=== PATIENT | male | born 1990 | race Hispanic/Latino ===

== ENCOUNTER 2016-04-13 12:20 | Inpatient (IN) | payer OTHER ==
[~2016-04-13] VITALS: Ht 170.2 cm; Wt 66.8 kg
[~2016-04-13 12:20] MED LIST: IBUPOTC PO; OLAN5ZYD PO; TRAZ10TA PO
[2016-04-13 12:54] LABS: MEAN CORPUSCULAR HEMOGLOBIN 30.3 pg (27.0-33.0); MEAN CORPUSCULAR HGB CONC 32.8 g/dl (32.0-36.5); MEAN CORPUSCULAR VOLUME 92.4 fl (80.0-96.0); RED CELL DISTRIBUTION WIDTH 12.5 % (11.5-14.5); WHITE BLOOD COUNT 6.8 K/mm3 (4.0-10.0)
[2016-04-13 13:29] LABS: ALBUMIN 4.4 GM/DL (3.2-5.2); ALBUMIN/GLOBULIN RATIO 1.22 (1.00-1.93); ALKALINE PHOSPHATASE 53 U/L (45-117); ALT/SGPT 32 U/L (12-78); ANION GAP 8 MEQ/L (8-16); AST/SGOT 17 U/L (15-37); BILIRUBIN,DIRECT 0.2 MG/DL (0.0-0.2); BILIRUBIN,TOTAL 1.1 MG/DL (0.2-1.0); BLOOD UREA NITROGEN 17 MG/DL (7-18); CALCIUM LEVEL 9.3 MG/DL (8.5-10.1); CARBON DIOXIDE LEVEL 26 MEQ/L (21-32); CHLORIDE LEVEL 105 MEQ/L (98-107); CREATININE FOR GFR 1.15 MG/DL (0.70-1.30); GLOMERULAR FILTRATION RATE > 60.0 (>60); GLUCOSE, FASTING 86 MG/DL (70-105); POTASSIUM SERUM 4.2 MEQ/L (3.5-5.1); SODIUM LEVEL 139 MEQ/L (136-145)
[2016-04-13 13:33] LABS: LITHIUM LEVEL < 0.20 MEQ/L (0.60-1.20)
[2016-04-13 15:26] LABS: AMPHETAMINES LEVEL URINE NEGATIVE (NEGATIVE); BENZODIAZEPINES URINE NEGATIVE (NEGATIVE); COCAINE METABOLITE URINE NEGATIVE (NEGATIVE); CONTROL LINE INT CTR LINE PRESENT; METHADONE URINE NEGATIVE (NEGATIVE); OPIATES URINE NEGATIVE (NEGATIVE); TRICYCLIC ANTIDEPRESS URINE NEGATIVE (NEGATIVE)
[2016-04-13] MEDS ORDERED: PARO40TA PO (15:59)
[2016-04-13] MEDS ORDERED: LITH30TASA PO ×2 (15:59)
[2016-04-13] MEDS ORDERED: QUET1TAB8 PO (15:59)
[2016-04-13] MEDS ORDERED: PRAZ5CAP PO (15:59)
[2016-04-13] MEDS ORDERED: QUET20XRTB PO (15:59)
--- NOTE | 2016-04-13 17:50 | EDDOCDS ---
Physician Documentation [facility] Name: Alex Kay Age: 26 yrs Sex: Male : 1990 Arrival Date: 04/13/2016 Time: 12:20 Bed [facility] Private MD: Disposition: 04/13/16 15:41 Hospitalization ordered by Ronaldo Carvajal for Inpatient Admission. Preliminary diagnosis is Major depressive disorder, recurrent, unspecified. - Bed requested for Admit. - Status is Inpatient Admission. mk4 - Condition is Stable. - Problem is new. - Symptoms are unchanged. Historical: - Allergies: Amoxicillin; - Home Meds: 1. lithium carbonate 300 mg Oral cap twice a day 2. paroxetine HCl 40 mg Oral tab 1 tab once daily 3. quetiapine 300 mg oral tab nightly 4. prazosin 5 mg Oral cap 2 caps nightly 5. pt was only given 7 days worth of meds on 03/29 - PSHx: none; - Social history: No barriers to communication noted, The patient speaks fluent Hungarian, Smoking status: Patient states was never smoker of tobacco. - Family history: Not pertinent. - : The pt / caregiver states he / she is not on anticoagulants. Home medication list is obtained from the patient. - Exposure Risk Screening:: None identified. Vital Signs: 04/13 12:35 BP 113 / 74; Pulse 80; Resp 18; Temp 97.4(T); Pulse Ox 98% on R/A; Weight 63.5 kg / mk4 139.99 lbs; Height 5 ft. 7 in. (170.18 cm); 17:43 BP 111 / 69; Pulse 74; Resp 20; Temp 97.6(O); Pulse Ox 98% on R/A; Pain 6/10; jml1 12:35 Body Mass Index 21.93 (63.50 kg, 170.18 cm) mk4 MDM: 12:23 Consult PFS/PSA/Community Fundraiser ordered. sd1 12:23 Consult PFS/PSA/Community Fundraiser: Patient's case requires discussion with on-call sd1 Psychiatrist ordered. 12:23 PSA/PFS to call Nursing Shipfitter, to enter patient data on [place] Safe [place] if patient sd1 involuntarily admitted or transferred for SI or HI ordered. 12:23 Confirm accurate psychiatric medication list and times of last dosage ordered. sd1 12:23 Detain Pt Until Medically/PFS Cleared ordered. sd1 12:23 REGULAR DIET PLASTIC GALDAMEZ+DIET ordered. EDMS 12:23 Acetaminophen Level Ordered. EDMS 12:23 Basic Metabolic Profile Ordered. EDMS 12:23 Complete Blood Count Ordered. EDMS 12:23 Drug Eval Toxicology ED Only Ordered. EDMS 12:23 Ethyl Alcohol (ethanol) Ordered. EDMS 12:23 Liver Profile Ordered. EDMS 12:23 Salicylate Level Ordered. EDMS 12:23 Thyroid Stimulating Hormone Ordered. EDMS 12:44 Consult PFS/PSA/Community Fundraiser complete. mk4 12:44 Consult PFS/PSA/Community Fundraiser: Patient's case requires discussion with on-call mk4 Psychiatrist complete. 12:44 PSA/PFS to call Nursing Shipfitter, to [place] patient data [place] Safe [place] if patient mk4 involuntarily admitted or transferred for SI or HI complete. 13:02 LITHIUM LEVEL Ordered. EDMS 13:49 Acetaminophen Level Reviewed. br1 13:49 Complete Blood Count Reviewed. br1 13:49 Liver Profile Reviewed. br1 13:49 Salicylate Level Reviewed. br1 13:49 LITHIUM LEVEL Reviewed. br1 13:49 Basic Metabolic Profile Reviewed. br1 13:49 Ethyl Alcohol (ethanol) Reviewed. br1 13:49 Thyroid Stimulating Hormone Reviewed. br1 15:38 Drug Eval Toxicology ED Only Reviewed. br1 15:39 Consult PFS/PSA/Socail Worker: Cleared medically for eval ordered. br1 15:50 Consult PFS/PSA/Socail Worker: Cleared medically for eval complete. ca 16:03 [facility] Payment Agreement was scanned into [employer] and attached to record. dm19 16:03 Financial registration complete. dm19 16:29 REGULAR DIET PLASTIC GALDAMEZ+DIET ordered. EDMS 17:10 Admit to IM[facility]: ordered. EDMS Signatures: Dispatcher [employer] EDMS Flora Mclean MD MD sd1 Maddy Hanks PSA PSA Tylor Orozco MD MD br1 Tiffany Collins RN RN mk4 Kami Titus dm19 The chart was reviewed and I authenticate all verbal orders and agree with the evaluation and treatment provided.Corrections: (The following items were deleted from the chart) 13:02 12:55 LITHIUM LEVEL+LAB ordered. EDMS EDMS Attachments: 16:03 [facility] Payment Agreement dm19 [facility]
--- NOTE | 2016-04-13 17:50 | EDDOCDS ---
Nurse's Notes [facility] Name: Alex Kay Age: 26 yrs Sex: Male : 1990 Arrival Date: 04/13/2016 Time: 12:20 Bed [facility] [[email or web address] Private MD: Diagnosis: Major depressive disorder, recurrent, unspecified Presentation: 04/13 12:24 Presenting complaint: pt called [employer] police this am telling them he was suicidal, when [address] pt ran out into the [place] and was leaned up against a tree with a belt around his neck, police cut belt and put pt in police car, on their way here police received a call from pt that states that pt dumped a pile of his pills in his mouth at the house but then spit them out into the sink which the pt confirmed, pt states perhaps a few " slid down his throat". Mental Health Triage Level: Level 2: The patient displays active suicidal ideations. The patient was brought to the ED for evaluation because of a legal pickup order. Adult Sepsis Screening: The patient does not have new or worsening altered mentation. Patient's respiratory rate is less than 22. Systolic blood pressure is greater than 100. Patient has a qSOFA score of 0- Negative Sepsis Screen. Suicide/Homicide risk assessment- The patient admits to and/or has been reported to be having suicidal ideations. 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 Transition of care: patient was not received from another setting of care. 12:24 Acuity: ALLISON Level 3 [facility] 12:24 Method Of Arrival: Police Car [facility] Triage Assessment: 12:27 General: Appears in no apparent distress. Pain: Denies pain. HIV screening NA for this 4 visit Offered previously. Historical: - Allergies: Amoxicillin; - Home Meds: 1. lithium carbonate 300 mg Oral cap twice a day 2. paroxetine HCl 40 mg Oral tab 1 tab once daily 3. quetiapine 300 mg oral tab nightly 4. prazosin 5 mg Oral cap 2 caps nightly 5. pt was only given 7 days worth of meds on 03/29 - PSHx: none; - Social history: No barriers to communication noted, The patient speaks fluent Dutch, Smoking status: Patient states was never smoker of tobacco. - Family history: Not pertinent. - : The pt / caregiver states he / she is not on anticoagulants. Home medication list is obtained from the patient. - Exposure Risk Screening:: None identified. Screenin:45 Screening information is obtained from the patient. Fall risk: No risks identified. mk4 Assistance ADL's: requires no assistance with activities of daily living. Abuse/DV Screen: The patient / caregiver reports he/she is: not in a situation that causes fear, pain or injury. Nutritional screening: No deficits noted. Advance Directives: Currently, there is no health care proxy. There is no active DNR order. There is no living will. There is no Power of Mechanics Handyman. Advance directive information has not previously been placed in an [facility] medical record. Further advance directive information is declined. home support is adequate. Assessment: 12:45 General: Appears in no apparent distress, Behavior is flat. Pain: Denies pain. mk4 Neurological: Level of Consciousness is awake, alert. Respiratory: Airway is patent Respiratory effort is even, unlabored, Respiratory pattern is regular. Respiratory: Breath sounds are clear bilaterally. Derm: red abrasion and bruising around neck. 13:50 General: Appears in no apparent distress, solomon hanks social media marketing specialist in with pt. mk4 14:50 General: Appears in no apparent distress, Behavior is cooperative, social media marketing specialist in mk4 speaking with pt . 15:56 General: Appears in no apparent distress, comfortable, Behavior is cooperative, flat, mk4 quiet. Neurological: Level of Consciousness is awake, alert. Respiratory: Airway is patent Respiratory effort is even, unlabored, Respiratory pattern is regular. 16:28 General: Appears in no apparent distress, comfortable, Behavior is cooperative, flat, mk4 quiet. Neurological: Level of Consciousness is awake, alert. 17:41 General: Appears in no apparent distress, comfortable, Behavior is cooperative. mk4 Neurological: Level of Consciousness is awake, alert. Mental Health Eval: 13:00 Mental health consult is initiated at 13:00. 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 Referral Information: Evaluation referral is generated by a police agency: [facility] on . The patient was referred for evaluation because Pt found attempting to hang self in the [place]. 14:31 Subjective: The patients chief complaint is Pt was found by police after reported ca he had run into the [place] with a belt and was trying to hang himself. Pt admits to attempt and also attempted to take OD of his medications. Pt says he put them in his mouth and then spit them out, "may have swallowed a few.". Delusions are denied. Patient's mood is depressed, hopeless, irritable, hallucinations are Pt states "I heard voices and saw something about a month ago, but maybe it was a dream.". Spoke with pt's who says the couple continues to have marital problems. An argument ensued over breakfast this morning and escalated from there. expresses concern that pt is taking so many medications as well. Also concerned with the lethality of pt's attempt this morning. Pt appears depressed, irritable, making poor eye contact. States he has difficulty talking about his problems and does not feel it will benefit him by being admitted to hospital. Pt has had numerous past attempts at self-harm by cutting and other means. He has been in the for 6 years, at [facility] for 1 year and for 11 months. He will be med-boarding out of soon. He continues to see providers at [facility]. Denies ETOH. Admits to occasional use of marijuana. Mental Health history: alcohol abuse, depression, abusing marijuana. self -mutilation, suicide States previous attempts by cutting superficially Mental Health Admissions: Most recently at [facility] 01/23 Current Outpatient Mental Health Services: Psychiatrist / Agency: Pt sees Dr Tolbert and Bryson Amaral at [facility] for therapy and meds . Current living environment is Family / Home Support: Pt has marital issues. Continues to live with his of 11 months. Patient presents to Emergency Department with the following symptoms within the past 2 weeks: anger, anxiety, depressed mood, feelings of helplessness/hopelessness, marital problem, poor impulse control, sleep disturbance - erratic suicidal ideation with attempt/gesture by pills. hanging. Substance abuse: Pt denies. Mental status exam: Patients appearance is appropriate, Patient's behavior is cooperative, Speech is normal. Affect is flat. Mood is depressed. irritable. Hallucinations are denied. Appetite is erratic Memory is fair. Energy level is poor. Content of thought is Depressive Thought process is intact. Cognitive level is oriented to person, place, time and situation Patient's insight is fair. Judgement is poor. Rapport with interviewer is guarded. Suicidal Ideation present with a plan to kill self by hanging. Homicidal ideation is denied. Disposition: Medically cleared for disposition by Tylor Reed MD Psychiatric Consult is performed by phone with Dr Ronaldo Carvajal. [facility] Admission Criteria: The patient has had a suicide attempt in the recent past. Attempted to hang self this morning. Also attempted to OD on meds this morning. The patient displays symptoms of severe psychiatric disorder resulting in disordered behavior and significant interference with his / her ability to maintain self care. Severe Anxiety. The patient requires continuous observation and/or control to protect self, others or property. The patient's care requires a multi-modal treatment plan under close supervision and coordination due to the complexity and severity of the patient's symptoms. The patient requires administration and monitoring of psychoactive medications by skilled medical providers due to the side effects of the psychoactive medications or significant dosage adjustments. Legal Status: Patient's legal status will be Emergency admission: . [place] because patient was registered less than 6 months ago. DSM-V Differential Diagnosis: Major Depressive Disorder recurrent episode (F33.0). Insurance Pre-Certification: Not Required, Pt has . Awaiting: transfer to [facility]. Vital Signs: 12:35 BP 113 / 74; Pulse 80; Resp 18; Temp 97.4(T); Pulse Ox 98% on R/A; Weight 63.5 kg; mk4 Height 5 ft. 7 in. (170.18 cm); 17:43 BP 111 / 69; Pulse 74; Resp 20; Temp 97.6(O); Pulse Ox 98% on R/A; Pain 6/10; jml1 12:35 Body Mass Index 21.93 (63.50 kg, 170.18 cm) 4 Vitals: 12:35 Log In time N/A- police car arrival. 4 ED Course: 12:21 Patient visited by Shereen Turner Reg. lg 12:21 Patient moved to [facility] lg 12:21 Patient moved to [facility] [[email or web address] gr2 12:27 Triage Initiated mk4 12:39 Patient visited by Xiomara Banks. gr2 12:45 The patient / caregiver is instructed regarding the plan of care and ED course. mk4 12:45 No IV's were initiated during this patient's visit. No procedures done that require [facility] assistance. 12:54 Tylor Reed MD is Attending Physician. br1 13:06 Patient visited by Xiomara Banks. gr2 13:17 Patient visited by Tylor Reed MD. br1 13:32 Patient visited by Xiomara Banks. gr2 14:02 Patient visited by Tiffany Collins RN. mk4 14:06 Patient visited by Xiomara Banks. gr2 14:36 Patient visited by Xiomaar Banks. gr2 14:57 Patient visited by Xiomara Banks. gr2 15:14 Patient visited by Xiomara Banks. gr2 15:30 Patient visited by Xiomara Banks. gr2 15:41 Ronaldo Carvajal is Hospitalizing Provider. br1 15:45 Patient visited by Xiomara Banks. gr2 16:03 [facility] Payment Agreement was scanned into [employer] and attached to record. dm19 16:08 Patient visited by José Tavarez PCA. jrd 16:19 Patient visited by José Tavarez PCA. jrd 16:31 Patient visited by José Tavarez PCA. jrd 16:43 Patient visited by Xiomara Banks. gr2 17:09 Patient visited by Xiomara Banks. gr2 17:26 Patient visited by Xiomara Banks. gr2 17:44 Patient visited by Placido Grant. jml1 Order Results: Lab Order: Acetaminophen Level; SPEC'M 04/13/16 12:47 Test: ACETAMINOPHEN LEVEL; Value: < 2.0; Range: 10.0-30.0; Abnormal: Below low normal; Units: UG/ML; Status: F Lab Order: Basic Metabolic Profile; SPEC'M 04/13/16 12:47 Test: GLUCOSE, FASTING; Value: 86; Range: 70-105; Units: MG/DL; Status: F Test: BLOOD UREA NITROGEN; Value: 17; Range: 7-18; Units: MG/DL; Status: F Test: CREATININE FOR GFR; Value: 1.15; Range: 0.70-1.30; Units: MG/DL; Status: F Test: GLOMERULAR FILTRATION RATE; Value: > 60.0; Range: >60; Status: F Test: SODIUM LEVEL; Value: 139; Range: 136-145; Units: MEQ/L; Status: F Test: POTASSIUM SERUM; Value: 4.2; Range: 3.5-5.1; Units: MEQ/L; Status: F Test: CHLORIDE LEVEL; Value: 105; Range: 98-107; Units: MEQ/L; Status: F Test: CARBON DIOXIDE LEVEL; Value: 26; Range: 21-32; Units: MEQ/L; Status: F Test: ANION GAP; Value: 8; Range: 8-16; Units: MEQ/L; Status: F Test: CALCIUM LEVEL; Value: 9.3; Range: 8.5-10.1; Units: MG/DL; Status: F Test Note: ; Units are mL/min/1.73 m2 Chronic Kidney Disease Staging per NKF: Stage I & II GFR >=60 Normal to Mildly Decreased Stage III GFR 30-59 Moderately Decreased Stage IV GFR 15-29 Severely Decreased Stage V GFR <15 Very Little GFR Left ESRD GFR <15 on ORDER TAKER Lab Order: Complete Blood Count; SPEC'M 04/13/16 12:47 Test: WHITE BLOOD COUNT; Value: 6.8; Range: 4.0-10.0; Units: K/mm3; Status: F Test: RED BLOOD COUNT; Value: 4.54; Range: 4.30-6.10; Units: M/mm3; Status: F Test: HEMOGLOBIN; Value: 13.8; Range: 14.0-18.0; Abnormal: Below low normal; Units: g/dl; Status: F Test: HEMATOCRIT; Value: 42.0; Range: 42.0-52.0; Units: %; Status: F Test: MEAN CORPUSCULAR VOLUME; Value: 92.4; Range: 80.0-96.0; Units: fl; Status: F Test: MEAN CORPUSCULAR HEMOGLOBIN; Value: 30.3; Range: 27.0-33.0; Units: pg; Status: F Test: MEAN CORPUSCULAR HGB CONC; Value: 32.8; Range: 32.0-36.5; Units: g/dl; Status: F Test: RED CELL DISTRIBUTION WIDTH; Value: 12.5; Range: 11.5-14.5; Units: %; Status: F Test: PLATELET COUNT, AUTOMATED; Value: 304; Range: 150-450; Units: k/mm3; Status: F Lab Order: Drug Eval Toxicology ED Only; SPEC'M 04/13/16 12:46 Test: AMPHETAMINES LEVEL URINE; Value: NEGATIVE; Range: NEGATIVE; Status: F Test: BARBITURATES URINE; Value: NEGATIVE; Range: NEGATIVE; Status: F Test: BENZODIAZEPINES URINE; Value: NEGATIVE; Range: NEGATIVE; Status: F Test: CANNABINOIDS URINE; Value: NEGATIVE; Range: NEGATIVE; Status: F Test: COCAINE METABOLITE URINE; Value: NEGATIVE; Range: NEGATIVE; Status: F Test: METHADONE URINE; Value: NEGATIVE; Range: NEGATIVE; Status: F Test: OPIATES URINE; Value: NEGATIVE; Range: NEGATIVE; Status: F Test: TRICYCLIC ANTIDEPRESS URINE; Value: NEGATIVE; Range: NEGATIVE; Status: F Test Note: ; ALL PRESUMPTIVE POSITIVE FINDINGS ARE UNCONFIRMED NORMAL VALUES THRESHOLD IN NG/ML AMPHETAMINES 1000 METHAMPHETAMINES 1000 BARBITURATES 300 BENZODIAZEPINES 300 CANNABINOIDS (THC) 50 COCAINE METABOLITE 300 METHADONE 300 OPIATES 300 PHENCYCLIDINE 25 TRICYCLIC ANTIDEPRESSANTS 1000 RESULTS ARE FOR MEDICAL PURPOSES ONLY. ALL URINE SPECIMENS WILL BE SAVED FOR 3 DAYS. IF CONFIRMATION OF A PRESUMPTIVE POSTIVE SCREEN RESULT IS DESIRED, CALL CHEMISTRY ([phone]) AND REQUEST URINE TO BE SENT TO REFERENCE LAB. FOR A LIST OF CLOSELY RELATED COMPOUNDS PLEASE CALL THE LAB. Lab Order: Ethyl Alcohol (ethanol); SPEC'M 04/13/16 12:47 Test: ETHYL ALCOHOL (ETHANOL); Value: < 0.003; Range: 0.000-0.010; Units: %; Status: F Lab Order: Liver Profile; SPEC'M 04/13/16 12:47 Test: AST/SGOT; Value: 17; Range: 15-37; Units: U/L; Status: F Test: ALT/SGPT; Value: 32; Range: 12-78; Units: U/L; Status: F Test: ALKALINE PHOSPHATASE; Value: 53; Range: 45-117; Units: U/L; Status: F Test: BILIRUBIN,TOTAL; Value: 1.1; Range: 0.2-1.0; Abnormal: Above high normal; Units: MG/DL; Status: F Test: BILIRUBIN,DIRECT; Value: 0.2; Range: 0.0-0.2; Units: MG/DL; Status: F Test: TOTAL PROTEIN; Value: 8.0; Range: 6.4-8.2; Units: GM/DL; Status: F Test: ALBUMIN; Value: 4.4; Range: 3.2-5.2; Units: GM/DL; Status: F Test: ALBUMIN/GLOBULIN RATIO; Value: 1.22; Range: 1.00-1.93; Status: F Lab Order: Salicylate Level; SPEC'M 04/13/16 12:47 Test: SALICYLATE LEVEL; Value: < 1.7; Range: 5.0-30.0; Abnormal: Below low normal; Units: MG/DL; Status: F Lab Order: Thyroid Stimulating Hormone; SPEC'M 04/13/16 12:47 Test: THYROID STIMULATING HORMONE; Value: 2.370; Range: 0.358-3.740; Units: uIU/ML; Status: F Lab Order: LITHIUM LEVEL; SPEC'M 04/13/16 12:47 Test: LITHIUM LEVEL; Value: < 0.20; Range: 0.60-1.20; Abnormal: Below low normal; Units: MEQ/L; Status: F Outcome: 14:50 Discharge Assessment: Patient awake, alert and oriented x 3. No cognitive and/or mk4 functional deficits noted. Patient verbalized understanding of disposition instructions. Patient awake and alert. Discharge Assessment: patient administered narcotics - no. Admitted to Psych accompanied by tech, via wheelchair, with chart. The following High Risk Discharge criteria are identified: None. Condition: stable. No special radiology studies were completed. Property left with pt per hanna KNAPP. 15:41 Decision to Hospitalize by Provider. br1 17:48 Patient left the ED. mk4 Signatures: Solomon Hanks, PSA PSA ca Shereen Turner, Reg Reg lg Tylor Reed MD MD br1 Placido Grant jml1 Xiomara Banks gr2 Tiffany Collins RN RN mk4 José Tavarez PCA PCA jrd McLear, Diane dm19 MTDD
[2016-04-13 18:00] VITALS: BP 124/72
[2016-04-13] MEDS ORDERED: ACETAMINOPHEN TAB 650MG DOSE (2X325MG) PO PRN (19:45)
[2016-04-13] MEDS ORDERED: traZODone 50 MG TAB PO PRN (19:45)
[2016-04-13] MEDS ORDERED: MOM 30ML SUSPENSION UDC PO PRN (19:45)
[2016-04-13] MEDS ORDERED: MAALOX 30 ML SUSP *UDC PO PRN (19:45)
[2016-04-13] MEDS: PRAZOSIN 1 MG CAP PO SCH (21:00)
[2016-04-13] MEDS: LITHIUM CARBONATE 300 MG **CR** TAB PO SCH (21:00)
[2016-04-13] MEDS: QUEtiapine FUMARATE **XR** 200MG TABLET PO SCH (21:00)
[2016-04-13] MEDS: QUEtiapine FUMARATE 100 MG TAB PO SCH (21:00)
[2016-04-14 06:00] VITALS: BP 163/97
[2016-04-14] MEDS ORDERED: PARoxetine 20 MG TAB PO SCH (09:00)
[2016-04-14] MEDS: LITHIUM CARBONATE 300 MG **CR** TAB PO SCH ×2 (09:16→20:41)
--- NOTE | 2016-04-14 10:32 | HPEPDOC ---
Medical History and Physical Date of Admission Apr 13, 2016 at 17:55 History and Physical PCP: [facility] ATTENDING: Dr. Noel Hightower HPI: 26yoM admitted to [facility] for MDD, being medically examined today. Pt was found by [employer] attempting to hang himself in the [place]. According to emergency room records the patient had leaned up against a tree with a belt around his neck and place officers caught the belt and the patient from the tree. The patient is reporting some neck pain and soreness around his neck and the sides of the neck. There is no radiation of pain down the arms. No weakness in the arms. No numbness or tingling in arms. He does not complain of headache. No vision changes, dizziness, vertigo, dysarthria or dysphagia. Denies any fevers, chills, weakness, fatigue, CP, SOB, cough, palpitations, abdominal pain, N/V/D or changes in bowel or bladder habits. 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 ROS: As noted in HPI, otherwise 11pt ROS of systems reviewed and unremarkable PE: GEN: 26yoM, appears stated age. Well-nourished, well developed. No acute distress. Alert and oriented x 3. Pleasant, interactive. HEENT: Normocephalic, atraumatic. Pupils are equal, round, and reactive to light. Extraocular movements are intact. No nystagmus appreciated. Sclera are nonicteric. Conjunctiva without injection. Nose midline. Nasal turbinates without bogginess. EACs both patent BL. TMs both visualized and [place] with good cone of light, no bulging or erythema. No facial asymmetry. Moist mucous membranes. Dentition fair. Pharynx pink and moist, no cobblestoning. Neck supple , trachea midline. No lymphadenopathy or thyromegaly appreciated. CHEST: Regular rate and rhythm, +S1, +S2 LUNGS: Clear to auscultation bilaterally. No wheezes, rales, or rhonchi. Breathing appears symmetric and easy. Patient is speaking in full sentences. No accessory muscle use. ABD: Round, soft, non-tender, non-distended. +Bowel sounds throughout. No rebound or guarding. No costovertebral angle tenderness. EXT: Pulses 2+ bilaterally dorsalis pedis and radial. No lower extremity edema appreciated. SKIN: [place], dry, warm. Capillary refill <2sec. No rashes. There is ecchymotic areas noted on the lateral aspect of the neck bilaterally. NEURO: Alert and oriented x 3. Cranial nerves III-XII are intact. No focal deficits appreciated. He has good range of motion of the cervical spine without pain noted. He does not have any specific area of tenderness with palpation over the cervical spine, he does have some tenderness with palpation over the paraspinal muscles bilaterally. EK01/15/16. SR, ST abn 63 bpm. A&P: 25yoM admitted to [facility] for MDD 1. Psych. Plan per Psychiatry. Obtain baseline EKG to assure the safety of psychiatric medications as they can prolong the QT interval. 2. Follow up with PCP on discharge. [facility]. 3. Neck pain. Pt is s/p hanging attempt with belt yesterday. Continue Tylenol as needed. Check CT scan C Spine. Vital Signs Vital Signs Label Value Date Time Patient Temperature 96.4 degrees F 04/14/16 0600 Temperature Source Tympanic 04/14/16 0600 Pulse 81 04/14/16 0600 Respiratory Rate 16 bpm 04/14/16 0600 Blood Pressure Assessment 163/97 (119) 04/14/16 0600 Laboratory Data Labs 24H Laboratory Tests 2 04/13/16 12:46: Urine Amphetamine Level NEGATIVE, Urine Benzodiazepines Screen NEGATIVE, Urine Cannabinoids NEGATIVE, Urine Cocaine Metabolite NEGATIVE, Urine Opiates Screen NEGATIVE, Urine Barbiturates, Qualitative NEGATIVE, Urine Methadone Screen NEGATIVE, Urine Tricyclic Antidepressants NEGATIVE 04/13/16 12:47: Acetaminophen Level < 2.0L, Aspartate Amino Transf (AST/SGOT) 17, Alanine Aminotransferase (ALT/SGPT) 32, Alkaline Phosphatase 53, Total Bilirubin 1.1H, Direct Bilirubin 0.2, Albumin 4.4, Albumin/Globulin Ratio 1.22, Anion Gap 8, Calcium Level 9.3, Ethyl Alcohol Level < 0.003, Glomerular Filtration Rate > 60.0, [place] Level < 0.20L, Salicylates Level < 1.7L, Thyroid Stimulating Hormone (TSH) 2.370, Total Protein 8.0 CBC/BMP Laboratory Tests 04/13/16 12:47 Red Blood Count 4.54, Mean Corpuscular Volume 92.4, Mean Corpuscular Hemoglobin 30.3, Mean Corpuscular Hemoglobin Concent 32.8, Red Cell Distribution Width 12.5 Home Medications Scheduled [place] Carbonate ([place] Carbonate ER) 300 Mg Tab 300 MG PO QAM [place] Carbonate ([place] Carbonate ER) 300 Mg Tab 600 MG PO QHS Paroxetine (Paroxetine HCl) 40 Mg Tab 40 MG PO DAILY Prazosin Hcl (Prazosin HCl) 5 Mg Cap 10 MG PO QHS Quetiapine Fumarate (Seroquel Xr) 200 Mg [place] 200 MG PO QHS TAKE WITH 100MG Quetiapine Fumerate (Quetiapine Fumarate) 100 Mg Tab 100 MG PO QHS TAKE WITH 200MG XR Allergies Coded Allergies: Amoxicillin (Unverified Allergy, Unknown, RASH/VOMIT, 01/14/16) Brittney Stanford Apr 14, 2016 10:32
--- NOTE | 2016-04-14 11:36 | REP ---
CT cervical spine without contrast HISTORY: Neck pain COMPARISON: None There is no acute fracture or subluxation. There is no disc bulge or herniation. The spinal canal and neural foramina are patent. The intervertebral discs and vertebral bodies are normal in height. IMPRESSION: There is no acute fracture or subluxation. Signed by Antwan Drew MD 04/14/2016 11:27 A
[2016-04-14 18:00] VITALS: BP 114/81
--- NOTE | 2016-04-14 20:08 | MHHPE ---
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 He ran into the [place] as police were on the way. The patient was found by police leaning against a tree with a belt around his neck. The said belt was removed by police, and the patient was transported to the emergency department. While en route to the emergency department, the patient's reportedly called to inform police that the patient had dumped a pile of his pills in his mouth at the house but then spat them out, although it was not clear whether he swallowed any. The patient reports that he has, for the past 2 weeks, been experiencing worsening depressed mood, anger, feelings of hopelessness and helplessness, poor sleep and marital problems. On the day of the said incident, he was involved in an argument with his . PAST PSYCHIATRIC HISTORY: The patient reports that he has been receiving mental health treatment since January 2016 for depression. He says that he previously has been diagnosed with post-traumatic stress disorder (PTSD) and major depression and has engaged in multiple attempts to hang himself. He has previously been treated with medications that include Seroquel, Paxil, and [place]. He is also followed at [facility] by Dr. Tolbert and Bryson Sánchez. He had a previous [facility] hospital admission from 01/14/2016 to 01/19/2016 for depression and suicidal ideation. He was discharged on olanzapine and trazodone. His diagnosis on discharge were dysthymic disorder and post-traumatic stress disorder. HOME MEDICATIONS: - lithium carbonate 300 mg in the morning and 600 mg at bedtime - paroxetine 40 mg nightly - prazosin 10 mg nightly - quetiapine 300 mg nightly SUBSTANCE ABUSE HISTORY: He denies cigarette smoking, use of alcohol or illegal substances. MEDICAL HISTORY: He reports a history of asthma and he is allergic to amoxicillin. 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 He resides in [place]. He is and has three children. FAMILY HISTORY: His mother is alive, suffers from back problems. His father is also alive. He has a brother who reportedly has PTSD. REVIEW OF SYSTEMS: Please refer to medical skein washer assessment where no remarkable findings. VITAL SIGNS: Blood pressure 89/51, pulse 56, respirations 16, temperature 96.2. LABORATORY INVESTIGATION: There were no significant findings on urine toxicology. CBC and chemistry relatively normal. MENTAL STATUS EXAMINATION: The patient presents as appropriately dressed and well groomed. He is of average height and build. He presents with no abnormal involuntary movements. His speech is of normal volume, rate and rhythm. Thought process is coherent and goal directed. No evidence of delusions or ideas of reference. He denies currently experiencing any form of hallucinations but thinks that he might have auditory hallucinations in the past. His mood is depressed and occasionally quite irritable. Affect is mood congruent. He denies active suicidal thoughts, plan or intent, although admitting to occasional fleeting suicidal ideation. He is alert and oriented as to time, place and person. His insight is fair. Judgment is limited. Impulse control historically inadequate. DIAGNOSIS: Major depressive disorder, recurrent. To rule out bipolar disorder. History of post-traumatic stress disorder. PROBLEM LIST: Depression. Risk for suicide. PLAN: Inpatient admission with provision of safe therapeutic setting, pharmacological treatment: Home medications will be continued including lithium carbonate, paroxetine, prazosin, quetiapine. His medications will be reviewed ongoing with dosage adjustment as may be clinically indicated. He will be provided with individual, group and activity therapies. Ongoing assessment and supportive therapy. Once stable, he will be scheduled for discharge. Estimated length of stay: 5-7 days. [facility]
[2016-04-14] MEDS: QUEtiapine FUMARATE **XR** 200MG TABLET PO SCH (20:41)
[2016-04-14] MEDS: QUEtiapine FUMARATE 100 MG TAB PO SCH (20:41)
[2016-04-14] MEDS: PARoxetine 20 MG TAB PO SCH (20:41)
[2016-04-14] MEDS: PRAZOSIN 1 MG CAP PO SCH (20:42)
[2016-04-15 06:26] VITALS: BP 111/57
[2016-04-15] MEDS: LITHIUM CARBONATE 300 MG **CR** TAB PO SCH ×2 (09:37→21:09)
[2016-04-15 18:30] VITALS: BP 113/68
--- NOTE | 2016-04-15 18:49 | EDDOCDS ---
Physician Documentation [facility] Name: Alex Kay Age: 26 yrs Sex: Male : 1990 Arrival Date: 04/13/2016 Time: 12:20 Bed [facility] Private MD: Disposition: 04/13/16 15:41 Hospitalization ordered by Ronaldo Carvajal for Inpatient Admission. Preliminary diagnosis is Major depressive disorder, recurrent, unspecified. - Bed requested for Admit. - Status is Inpatient Admission. mk4 - Condition is Stable. - Problem is new. - Symptoms are unchanged. Historical: - Allergies: Amoxicillin; - Home Meds: 1. lithium carbonate 300 mg Oral cap twice a day 2. paroxetine HCl 40 mg Oral tab 1 tab once daily 3. quetiapine 300 mg oral tab nightly 4. prazosin 5 mg Oral cap 2 caps nightly 5. pt was only given 7 days worth of meds on 03/29 - PSHx: none; - Social history: No barriers to communication noted, The patient speaks fluent Luxembour[place], Smoking status: Patient states was never smoker of tobacco. - Family history: Not pertinent. - : The pt / caregiver states he / she is not on anticoagulants. Home medication list is obtained from the patient. - Exposure Risk Screening:: None identified. Vital Signs: 04/13 12:35 BP 113 / 74; Pulse 80; Resp 18; Temp 97.4(T); Pulse Ox 98% on R/A; Weight 63.5 kg / mk4 139.99 lbs; Height 5 ft. 7 in. (170.18 cm); 17:43 BP 111 / 69; Pulse 74; Resp 20; Temp 97.6(O); Pulse Ox 98% on R/A; Pain 6/10; jml1 12:35 Body Mass Index 21.93 (63.50 kg, 170.18 cm) mk4 MDM: 12:23 Consult PFS/PSA/Consumer Studies Professor ordered. sd1 12:23 Consult PFS/PSA/Consumer Studies Professor: Patient's case requires discussion with on-call sd1 Psychiatrist ordered. 12:23 PSA/PFS to call Nursing Solid Waste Management Engineer, to enter patient data on [place] Safe [place] if patient sd1 involuntarily admitted or transferred for SI or HI ordered. 12:23 Confirm accurate psychiatric medication list and times of last dosage ordered. sd1 12:23 Detain Pt Until Medically/PFS Cleared ordered. sd1 12:23 REGULAR DIET PLASTIC GALDAMEZ+DIET ordered. EDMS 12:23 Acetaminophen Level Ordered. EDMS 12:23 Basic Metabolic Profile Ordered. EDMS 12:23 Complete Blood Count Ordered. EDMS 12:23 Drug Eval Toxicology ED Only Ordered. EDMS 12:23 Ethyl Alcohol (ethanol) Ordered. EDMS 12:23 Liver Profile Ordered. EDMS 12:23 Salicylate Level Ordered. EDMS 12:23 Thyroid Stimulating Hormone Ordered. EDMS 12:44 Consult PFS/PSA/Consumer Studies Professor complete. mk4 12:44 Consult PFS/PSA/Consumer Studies Professor: Patient's case requires discussion with on-call mk4 Psychiatrist complete. 12:44 PSA/PFS to call Nursing Solid Waste Management Engineer, to [place] data [place] if patient mk4 involuntarily admitted or transferred for SI or HI complete. 13:02 LITHIUM LEVEL Ordered. EDMS 13:49 Acetaminophen Level Reviewed. br1 13:49 Complete Blood Count Reviewed. br1 13:49 Liver Profile Reviewed. br1 13:49 Salicylate Level Reviewed. br1 13:49 LITHIUM LEVEL Reviewed. br1 13:49 Basic Metabolic Profile Reviewed. br1 13:49 Ethyl Alcohol (ethanol) Reviewed. br1 13:49 Thyroid Stimulating Hormone Reviewed. br1 15:38 Drug Eval Toxicology ED Only Reviewed. br1 15:39 Consult PFS/PSA/Socail Worker: Cleared medically for eval ordered. br1 15:50 Consult PFS/PSA/Socail Worker: Cleared medically for eval complete. ca 16:03 [facility] [place] was [place] into [employer] and attached to record. dm19 16:03 Financial registration complete. dm19 16:29 REGULAR DIET PLASTIC GALDAMEZ+DIET ordered. EDMS 17:10 Admit to IMHU: ordered. EDMS 04/15 08:52 T-Sheet-- Draft Copy was scanned into [employer] and attached to record. gb Signatures: Dispatcher [employer] EDMS Flora Mclean MD MD sd1 Maddy Hanks, PSA PSA ca Alayna Lin, Reg Reg gb Tylor Reed MD MD br1 Tiffany Collins, RN RN mk4 Kami Titus dm19 The chart was reviewed and I authenticate all verbal orders and agree with the evaluation and treatment provided.Corrections: (The following items were deleted from the chart) 04/13 13:02 12:55 LITHIUM LEVEL+LAB ordered. EDMS EDMS Attachments: 16:03 [facility] Payment Agreement [email or web address] 04/15 08:52 T-Sheet-- Draft Copy gb Chart Complete MTDD
--- NOTE | 2016-04-15 18:49 | EDDOCDS ---
Physician Documentation [facility] Name: Alex Kay Age: 26 yrs Sex: Male : 1990 Arrival Date: 04/13/2016 Time: 12:20 Bed [facility] Private MD: Disposition: 04/13/16 15:41 Hospitalization ordered by Ronaldo Carvajal for Inpatient Admission. Preliminary diagnosis is Major depressive disorder, recurrent, unspecified. - Bed requested for Admit. - Status is Inpatient Admission. mk4 - Condition is Stable. - Problem is new. - Symptoms are unchanged. Historical: - Allergies: Amoxicillin; - Home Meds: 1. lithium carbonate 300 mg Oral cap twice a day 2. paroxetine HCl 40 mg Oral tab 1 tab once daily 3. quetiapine 300 mg oral tab nightly 4. prazosin 5 mg Oral cap 2 caps nightly 5. pt was only given 7 days worth of meds on 03/29 - PSHx: none; - Social history: No barriers to communication noted, The patient speaks fluent [place], Smoking status: Patient states was never smoker of tobacco. - Family history: Not pertinent. - : The pt / caregiver states he / she is not on anticoagulants. Home medication list is obtained from the patient. - Exposure Risk Screening:: None identified. Vital Signs: 04/13 12:35 BP 113 / 74; Pulse 80; Resp 18; Temp 97.4(T); Pulse Ox 98% on R/A; Weight 63.5 kg / mk4 139.99 lbs; Height 5 ft. 7 in. (170.18 cm); 17:43 BP 111 / 69; Pulse 74; Resp 20; Temp 97.6(O); Pulse Ox 98% on R/A; Pain 6/10; jml1 12:35 Body Mass Index 21.93 (63.50 kg, 170.18 cm) mk4 MDM: 12:23 Consult PFS/PSA/Residential Insurance Inspector ordered. sd1 12:23 Consult PFS/PSA/Residential Insurance Inspector: Patient's case requires discussion with on-call sd1 Psychiatrist ordered. 12:23 PSA/PFS to call Nursing Financial Supervisor, to [place] if patient sd1 involuntarily admitted or transferred for SI or HI ordered. 12:23 Confirm accurate psychiatric medication list and times of last dosage ordered. sd1 12:23 Detain Pt Until Medically/PFS Cleared ordered. sd1 12:23 REGULAR DIET PLASTIC GALDAMEZ+DIET ordered. EDMS 12:23 Acetaminophen Level Ordered. EDMS 12:23 Basic Metabolic Profile Ordered. EDMS 12:23 Complete Blood Count Ordered. EDMS 12:23 Drug Eval Toxicology ED Only Ordered. EDMS 12:23 Ethyl Alcohol (ethanol) Ordered. EDMS 12:23 Liver Profile Ordered. EDMS 12:23 Salicylate Level Ordered. EDMS 12:23 Thyroid Stimulating Hormone Ordered. EDMS 12:44 Consult PFS/PSA/Residential Insurance Inspector complete. mk4 12:44 Consult PFS/PSA/Residential Insurance Inspector: Patient's case requires discussion with on-call mk4 Psychiatrist complete. 12:44 PSA/PFS to call Nursing Financial Supervisor, to [place] if patient mk4 involuntarily admitted or transferred for SI or HI complete. 13:02 LITHIUM LEVEL Ordered. EDMS 13:49 Acetaminophen Level Reviewed. br1 13:49 Complete Blood Count Reviewed. br1 13:49 Liver Profile Reviewed. br1 13:49 Salicylate Level Reviewed. br1 13:49 LITHIUM LEVEL Reviewed. br1 13:49 Basic Metabolic Profile Reviewed. br1 13:49 Ethyl Alcohol (ethanol) Reviewed. br1 13:49 Thyroid Stimulating Hormone Reviewed. br1 15:38 Drug Eval Toxicology ED Only Reviewed. br1 15:39 Consult PFS/PSA/Socail Worker: Cleared medically for eval ordered. br1 15:50 Consult PFS/PSA/Socail Worker: Cleared medically for eval complete. ca 16:03 [facility] [place] Payment Agreement was scanned into [employer] and attached to record. [id number] 16:03 Financial registration complete. dm19 16:29 REGULAR DIET PLASTIC GALDAMEZ+DIET ordered. EDMS 17:10 Admit to IMHU: ordered. EDMS 04/15 08:52 T-Sheet-- Draft Copy was scanned into [employer] and attached to record. gb Signatures: Dispatcher [employer] EDMS Flora Mclean MD MD sd1 Maddy Hanks, PSA PSA ca Alayna Lin, Reg Reg gb Tylor Reed MD MD br1 Tiffany Collins, RN RN mk4 Kami Titus dm19 The chart was reviewed and I authenticate all verbal orders and agree with the evaluation and treatment provided.Corrections: (The following items were deleted from the chart) 04/13 13:02 12:55 LITHIUM LEVEL+LAB ordered. EDMS EDMS Attachments: 16:03 [facility] Payment Agreement [email or web address] 04/15 08:52 T-Sheet-- Draft Copy gb Chart Complete MTDD
--- NOTE | 2016-04-15 18:49 | EDDOCDS ---
Nurse's Notes [facility] Name: Alex Kay Age: 26 yrs Sex: Male : 1990 Arrival Date: 04/13/2016 Time: 12:20 Bed [facility] Private MD: Diagnosis: Major depressive disorder, recurrent, unspecified Presentation: 04/13 12:24 Presenting complaint: pt called [facility] police this am telling them he was suicidal, when [address] pt ran out into the [place] and was leaned up against a tree with a belt around his neck, police cut belt and put pt in police car, on their way here police received a call from pt that states that pt dumped a pile of his pills in his mouth at the house but then spit them out into the sink which the pt confirmed, pt states perhaps a few " slid down his throat". Mental Health Triage Level: Level 2: The patient displays active suicidal ideations. The patient was brought to the ED for evaluation because of a legal pickup order. Adult Sepsis Screening: The patient does not have new or worsening altered mentation. Patient's respiratory rate is less than 22. Systolic blood pressure is greater than 100. Patient has a qSOFA score of 0- Negative Sepsis Screen. Suicide/Homicide risk assessment- The patient admits to and/or has been reported to be having suicidal ideations. 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 Transition of care: patient was not received from another setting of care. 12:24 Acuity: ALLISON Level 3 [facility] 12:24 Method Of Arrival: Police Car [facility] Triage Assessment: 12:27 General: Appears in no apparent distress. Pain: Denies pain. HIV screening NA for this 4 visit Offered previously. Historical: - Allergies: Amoxicillin; - Home Meds: 1. lithium carbonate 300 mg Oral cap twice a day 2. paroxetine HCl 40 mg Oral tab 1 tab once daily 3. quetiapine 300 mg oral tab nightly 4. prazosin 5 mg Oral cap 2 caps nightly 5. pt was only given 7 days worth of meds on 03/29 - PSHx: none; - Social history: No barriers to communication noted, The patient speaks fluent Burmese, Smoking status: Patient states was never smoker of tobacco. - Family history: Not pertinent. - : The pt / caregiver states he / she is not on anticoagulants. Home medication list is obtained from the patient. - Exposure Risk Screening:: None identified. Screenin:45 Screening information is obtained from the patient. Fall risk: No risks identified. mk4 Assistance ADL's: requires no assistance with activities of daily living. Abuse/DV Screen: The patient / caregiver reports he/she is: not in a situation that causes fear, pain or injury. Nutritional screening: No deficits noted. Advance Directives: Currently, there is no health care proxy. There is no active DNR order. There is no living will. There is no Power of Sash Finisher. Advance directive information has not previously been placed in an [facility] medical record. Further advance directive information is declined. home support is adequate. Assessment: 12:45 General: Appears in no apparent distress, Behavior is flat. Pain: Denies pain. mk4 Neurological: Level of Consciousness is awake, alert. Respiratory: Airway is patent Respiratory effort is even, unlabored, Respiratory pattern is regular. Respiratory: Breath sounds are clear bilaterally. Derm: red abrasion and bruising around neck. 13:50 General: Appears in no apparent distress, solomon hanks social media developer in with pt. mk4 14:50 General: Appears in no apparent distress, Behavior is cooperative, social media developer in mk4 speaking with pt . 15:56 General: Appears in no apparent distress, comfortable, Behavior is cooperative, flat, mk4 quiet. Neurological: Level of Consciousness is awake, alert. Respiratory: Airway is patent Respiratory effort is even, unlabored, Respiratory pattern is regular. 16:28 General: Appears in no apparent distress, comfortable, Behavior is cooperative, flat, mk4 quiet. Neurological: Level of Consciousness is awake, alert. 17:41 General: Appears in no apparent distress, comfortable, Behavior is cooperative. mk4 Neurological: Level of Consciousness is awake, alert. Mental Health Eval: 13:00 Mental health consult is initiated at 13:00. 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 Referral Information: Evaluation referral is generated by a police agency: [facility] on . The patient was referred for evaluation because Pt found attempting to hang self in the [place]. 14:31 Subjective: The patients chief complaint is Pt was found by police after reported ca he had run into the [place] with a belt and was trying to hang himself. Pt admits to attempt and also attempted to take OD of his medications. Pt says he put them in his mouth and then spit them out, "may have swallowed a few.". Delusions are denied. Patient's mood is depressed, hopeless, irritable, hallucinations are Pt states "I heard voices and saw something about a month ago, but maybe it was a dream.". Spoke with pt's who says the couple continues to have marital problems. An argument ensued over breakfast this morning and escalated from there. expresses concern that pt is taking so many medications as well. Also concerned with the lethality of pt's attempt this morning. Pt appears depressed, irritable, making poor eye contact. States he has difficulty talking about his problems and does not feel it will benefit him by being admitted to hospital. Pt has had numerous past attempts at self-harm by cutting and other means. He has been in the for 6 years, at [facility] for 1 year and for 11 months. He will be med-boarding out of soon. He continues to see providers at [facility]. Denies ETOH. Admits to occasional use of marijuana. Mental Health history: alcohol abuse, depression, abusing marijuana. self -mutilation, suicide States previous attempts by cutting superficially Mental Health Admissions: Most recently at [facility] 01/23 Current Outpatient Mental Health Services: Psychiatrist / Agency: Pt sees Dr Tolbert and Bryson Amaral at [facility] for therapy and meds . Current living environment is Family / Home Support: Pt has marital issues. Continues to live with his of 11 months. Patient presents to Emergency Department with the following symptoms within the past 2 weeks: anger, anxiety, depressed mood, feelings of helplessness/hopelessness, marital problem, poor impulse control, sleep disturbance - erratic suicidal ideation with attempt/gesture by pills. hanging. Substance abuse: Pt denies. Mental status exam: Patients appearance is appropriate, Patient's behavior is cooperative, Speech is normal. Affect is flat. Mood is depressed. irritable. Hallucinations are denied. Appetite is erratic Memory is fair. Energy level is poor. Content of thought is Depressive Thought process is intact. Cognitive level is oriented to person, place, time and situation Patient's insight is fair. Judgement is poor. Rapport with interviewer is guarded. Suicidal Ideation present with a plan to kill self by hanging. Homicidal ideation is denied. Disposition: Medically cleared for disposition by Tylor Reed MD Psychiatric Consult is performed by phone with Dr Ronaldo Carvajal. [facility] Admission Criteria: The patient has had a suicide attempt in the recent past. Attempted to hang self this morning. Also attempted to OD on meds this morning. The patient displays symptoms of severe psychiatric disorder resulting in disordered behavior and significant interference with his / her ability to maintain self care. Severe Anxiety. The patient requires continuous observation and/or control to protect self, others or property. The patient's care requires a multi-modal treatment plan under close supervision and coordination due to the complexity and severity of the patient's symptoms. The patient requires administration and monitoring of psychoactive medications by skilled medical providers due to the side effects of the psychoactive medications or significant dosage adjustments. Legal Status: Patient's legal status will be Emergency admission: . [place] applicable because patient was registered less than 6 months ago. DSM-V Differential Diagnosis: Major Depressive Disorder recurrent episode (F33.0). Insurance Pre-Certification: Not Required, Pt has . Awaiting: transfer to [facility]. Vital Signs: 12:35 BP 113 / 74; Pulse 80; Resp 18; Temp 97.4(T); Pulse Ox 98% on R/A; Weight 63.5 kg; mk4 Height 5 ft. 7 in. (170.18 cm); 17:43 BP 111 / 69; Pulse 74; Resp 20; Temp 97.6(O); Pulse Ox 98% on R/A; Pain 6/10; jml1 12:35 Body Mass Index 21.93 (63.50 kg, 170.18 cm) 4 Vitals: 12:35 Log In time N/A- police car arrival. 4 ED Course: 12:21 Patient visited by Shereen Turner Reg. lg 12:21 Patient moved to [facility] lg 12:21 Patient moved to [facility] gr2 12:27 Triage Initiated mk4 12:39 Patient visited by Xiomara Banks. gr2 12:45 The patient / caregiver is instructed regarding the plan of care and ED course. mk4 12:45 No IV's were initiated during this patient's visit. No procedures done that require [facility] assistance. 12:54 Tylor Reed MD is Attending Physician. br1 13:06 Patient visited by Xiomara Banks. gr2 13:17 Patient visited by Tylor Reed MD. br1 13:32 Patient visited by Xiomara Banks. gr2 14:02 Patient visited by Tiffany Collins RN. mk4 14:06 Patient visited by Xiomara Banks. gr2 14:36 Patient visited by Xiomara Banks. gr2 14:57 Patient visited by Xiomara Banks. gr2 15:14 Patient visited by Xiomara Banks. gr2 15:30 Patient visited by Xiomara Banks. gr2 15:41 Ronaldo Carvajal is Hospitalizing Provider. br1 15:45 Patient visited by Xiomara Banks. gr2 16:03 [facility] Payment Agreement was scanned into [employer] and attached to record. dm19 16:08 Patient visited by José Tavarez PCA. jrd 16:19 Patient visited by José Tavarez PCA. jrd 16:31 Patient visited by José Tavarez PCA. jrd 16:43 Patient visited by Xiomara Banks. gr2 17:09 Patient visited by Xiomara Banks. gr2 17:26 Patient visited by Xiomara Banks. gr2 17:44 Patient visited by Placido Grant. jml1 04/15 08:52 T-Sheet-- Draft Copy was scanned into [employer] and attached to record. gb Order Results: Lab Order: Acetaminophen Level; SPEC'M 04/13/16 12:47 Test: ACETAMINOPHEN LEVEL; Value: < 2.0; Range: 10.0-30.0; Abnormal: Below low normal; Units: UG/ML; Status: F Lab Order: Basic Metabolic Profile; SPEC'M 04/13/16 12:47 Test: GLUCOSE, FASTING; Value: 86; Range: 70-105; Units: MG/DL; Status: F Test: BLOOD UREA NITROGEN; Value: 17; Range: 7-18; Units: MG/DL; Status: F Test: CREATININE FOR GFR; Value: 1.15; Range: 0.70-1.30; Units: MG/DL; Status: F Test: GLOMERULAR FILTRATION RATE; Value: > 60.0; Range: >60; Status: F Test: SODIUM LEVEL; Value: 139; Range: 136-145; Units: MEQ/L; Status: F Test: POTASSIUM SERUM; Value: 4.2; Range: 3.5-5.1; Units: MEQ/L; Status: F Test: CHLORIDE LEVEL; Value: 105; Range: 98-107; Units: MEQ/L; Status: F Test: CARBON DIOXIDE LEVEL; Value: 26; Range: 21-32; Units: MEQ/L; Status: F Test: ANION GAP; Value: 8; Range: 8-16; Units: MEQ/L; Status: F Test: CALCIUM LEVEL; Value: 9.3; Range: 8.5-10.1; Units: MG/DL; Status: F Test Note: ; Units are mL/min/1.73 m2 Chronic Kidney Disease Staging per NKF: Stage I & II GFR >=60 Normal to Mildly Decreased Stage III GFR 30-59 Moderately Decreased Stage IV GFR 15-29 Severely Decreased Stage V GFR <15 Very Little GFR Left ESRD GFR <15 on BOOSTER ASSEMBLER Lab Order: Complete Blood Count; SPEC'M 04/13/16 12:47 Test: WHITE BLOOD COUNT; Value: 6.8; Range: 4.0-10.0; Units: K/mm3; Status: F Test: RED BLOOD COUNT; Value: 4.54; Range: 4.30-6.10; Units: M/mm3; Status: F Test: HEMOGLOBIN; Value: 13.8; Range: 14.0-18.0; Abnormal: Below low normal; Units: g/dl; Status: F Test: HEMATOCRIT; Value: 42.0; Range: 42.0-52.0; Units: %; Status: F Test: MEAN CORPUSCULAR VOLUME; Value: 92.4; Range: 80.0-96.0; Units: fl; Status: F Test: MEAN CORPUSCULAR HEMOGLOBIN; Value: 30.3; Range: 27.0-33.0; Units: pg; Status: F Test: MEAN CORPUSCULAR HGB CONC; Value: 32.8; Range: 32.0-36.5; Units: g/dl; Status: F Test: RED CELL DISTRIBUTION WIDTH; Value: 12.5; Range: 11.5-14.5; Units: %; Status: F Test: PLATELET COUNT, AUTOMATED; Value: 304; Range: 150-450; Units: k/mm3; Status: F Lab Order: Drug Eval Toxicology ED Only; SPEC'M 04/13/16 12:46 Test: AMPHETAMINES LEVEL URINE; Value: NEGATIVE; Range: NEGATIVE; Status: F Test: BARBITURATES URINE; Value: NEGATIVE; Range: NEGATIVE; Status: F Test: BENZODIAZEPINES URINE; Value: NEGATIVE; Range: NEGATIVE; Status: F Test: CANNABINOIDS URINE; Value: NEGATIVE; Range: NEGATIVE; Status: F Test: COCAINE METABOLITE URINE; Value: NEGATIVE; Range: NEGATIVE; Status: F Test: METHADONE URINE; Value: NEGATIVE; Range: NEGATIVE; Status: F Test: OPIATES URINE; Value: NEGATIVE; Range: NEGATIVE; Status: F Test: TRICYCLIC ANTIDEPRESS URINE; Value: NEGATIVE; Range: NEGATIVE; Status: F Test Note: ; ALL PRESUMPTIVE POSITIVE FINDINGS ARE UNCONFIRMED NORMAL VALUES THRESHOLD IN NG/ML AMPHETAMINES 1000 METHAMPHETAMINES 1000 BARBITURATES 300 BENZODIAZEPINES 300 CANNABINOIDS (THC) 50 COCAINE METABOLITE 300 METHADONE 300 OPIATES 300 PHENCYCLIDINE 25 TRICYCLIC ANTIDEPRESSANTS 1000 RESULTS ARE FOR MEDICAL PURPOSES ONLY. ALL URINE SPECIMENS WILL BE SAVED FOR 3 DAYS. IF CONFIRMATION OF A PRESUMPTIVE POSTIVE SCREEN RESULT IS DESIRED, CALL CHEMISTRY ([phone]) AND REQUEST URINE TO BE SENT TO REFERENCE LAB. FOR A LIST OF CLOSELY RELATED COMPOUNDS PLEASE CALL THE LAB. Lab Order: Ethyl Alcohol (ethanol); SPEC'M 04/13/16 12:47 Test: ETHYL ALCOHOL (ETHANOL); Value: < 0.003; Range: 0.000-0.010; Units: %; Status: F Lab Order: Liver Profile; SPEC'M 04/13/16 12:47 Test: AST/SGOT; Value: 17; Range: 15-37; Units: U/L; Status: F Test: ALT/SGPT; Value: 32; Range: 12-78; Units: U/L; Status: F Test: ALKALINE PHOSPHATASE; Value: 53; Range: 45-117; Units: U/L; Status: F Test: BILIRUBIN,TOTAL; Value: 1.1; Range: 0.2-1.0; Abnormal: Above high normal; Units: MG/DL; Status: F Test: BILIRUBIN,DIRECT; Value: 0.2; Range: 0.0-0.2; Units: MG/DL; Status: F Test: TOTAL PROTEIN; Value: 8.0; Range: 6.4-8.2; Units: GM/DL; Status: F Test: ALBUMIN; Value: 4.4; Range: 3.2-5.2; Units: GM/DL; Status: F Test: ALBUMIN/GLOBULIN RATIO; Value: 1.22; Range: 1.00-1.93; Status: F Lab Order: Salicylate Level; SPEC'M 04/13/16 12:47 Test: SALICYLATE LEVEL; Value: < 1.7; Range: 5.0-30.0; Abnormal: Below low normal; Units: MG/DL; Status: F Lab Order: Thyroid Stimulating Hormone; SPEC'M 04/13/16 12:47 Test: THYROID STIMULATING HORMONE; Value: 2.370; Range: 0.358-3.740; Units: uIU/ML; Status: F Lab Order: LITHIUM LEVEL; SPEC'M 04/13/16 12:47 Test: LITHIUM LEVEL; Value: < 0.20; Range: 0.60-1.20; Abnormal: Below low normal; Units: MEQ/L; Status: F Outcome: 04/13 14:50 Discharge Assessment: Patient awake, alert and oriented x 3. No cognitive and/or mk4 functional deficits noted. Patient verbalized understanding of disposition instructions. Patient awake and alert. Discharge Assessment: patient administered narcotics - no. Admitted to Psych accompanied by tech, via wheelchair, with chart. The following High Risk Discharge criteria are identified: None. Condition: stable. No special radiology studies were completed. Property left with pt per hanna KNAPP. 15:41 Decision to Hospitalize by Provider. br1 17:48 Patient left the ED. mk4 Signatures: Solomon Hanks, PSA PSA ca Alayna Lin, Reg Reg gb Shereen Turner, Reg Reg lg Tylor Reed MD MD br1 Placido Grant jml1 Xiomara Banks gr2 Tiffany Collins RN RN mk4 José Tavarez, [employer] MODEL jrd Kami Titus dm19 Chart Complete MTDD
[2016-04-15 21:08] VITALS: BP 126/80
[2016-04-15] MEDS: PARoxetine 20 MG TAB PO SCH (21:09)
[2016-04-15] MEDS: QUEtiapine FUMARATE 100 MG TAB PO SCH (21:09)
[2016-04-15] MEDS: QUEtiapine FUMARATE **XR** 200MG TABLET PO SCH (21:09)
[2016-04-15] MEDS: PRAZOSIN 1 MG CAP PO SCH (21:09)
--- NOTE | 2016-04-15 23:58 | IPN ---
DATE: 04/15/2016 TREATMENT: This is the third day of inpatient admission for the patient, and he has been continued on his home medications, lithium carbonate 300 mg in the morning and 600 mg at bedtime, paroxetine 40 mg at bedtime, prazosin 10 mg at bedtime, quetiapine 300 mg at bedtime. He is seen this morning, and reports that he has been taking the medications, and that he had a good night's sleep. However, he complains of still being depressed; however, he denies currently having active thoughts or plan of suicide. He reports no medication related adverse events. OBSERVATION: Vital signs are stable. He is noted to be alert, cooperative. He is mostly in bed and rarely participates or interacts with any form of activity. His mood is still depressed. Affect constricted. Notable psychomotor retardation. No evidence of medication adverse events. PLAN: Continue the current medication and encourage the patient to participate in therapeutic activities, ongoing assessment and medication adjustment as may be clinically indicated. MOHINDER
[2016-04-16 06:50] VITALS: BP 100/57
[2016-04-16] MEDS: LITHIUM CARBONATE 300 MG **CR** TAB PO SCH ×2 (08:15→21:37)
[2016-04-16 18:00] VITALS: BP 126/66
[2016-04-16] MEDS: QUEtiapine FUMARATE **XR** 200MG TABLET PO SCH (21:37)
[2016-04-16] MEDS: PARoxetine 20 MG TAB PO SCH (21:37)
[2016-04-16] MEDS: QUEtiapine FUMARATE 100 MG TAB PO SCH (21:37)
[2016-04-16] MEDS: PRAZOSIN 1 MG CAP PO SCH (21:38)
--- NOTE | 2016-04-17 02:39 | IPN ---
DATE OF SERVICE: 04/16/2016 TREATMENT: CURRENT MEDICATIONS: - lithium carbonate 300 mg in the morning and 600 mg at bedtime - Paxil 40 mg at bedtime - prazosin 10 mg at bedtime - quetiapine 300 mg at bedtime In addition, he is provided with therapeutic program including group, individual and activities. He is seen today and medication reviewed. Today is his fourth day of inpatient hospital admission. He reports that he is doing increasingly better on the current medication, that he has had enough time to rest and reflect on his serious threat of harm to self involving attempt to hang. No new complaints presented and reports no medication related side effect. OBSERVATION: Vital signs: Blood pressure 100/57, pulse 62, respirations 18, temperature 96.2. He is noted to be calm and cooperative, still does not interact adequately with his peers. Stays mostly in his bed and sleeping or just sitting quietly. Slight psychomotor retardation is noted. No overt psychotic features are present. He describes his mood as improving and denies active thoughts of suicide, homicide, as well as plan or intent. ASSESSMENT: Patient is showing some improvement; however, he continues to have some depressive symptomatology and will require further inpatient stabilization. PLAN: Current treatment will be continued with ongoing assessment. MOHINDER
[2016-04-17 06:45] VITALS: BP 86/47
[2016-04-17] MEDS: LITHIUM CARBONATE 300 MG **CR** TAB PO SCH ×2 (08:33→21:24)
[2016-04-17 18:51] VITALS: BP 111/61
[2016-04-17] MEDS: QUEtiapine FUMARATE **XR** 200MG TABLET PO SCH (21:24)
[2016-04-17] MEDS: PRAZOSIN 1 MG CAP PO SCH (21:24)
[2016-04-17] MEDS: QUEtiapine FUMARATE 100 MG TAB PO SCH (21:24)
[2016-04-17] MEDS: PARoxetine 20 MG TAB PO SCH (21:24)
--- NOTE | 2016-04-18 | IPN ---
DATE: 04/17/2016 CURRENT MEDICATIONS: - lithium carbonate 200 mg in the morning and 600 mg at bedtime - Paxil 40 mg at bedtime - prazosin 10 mg at bedtime - quetiapine 300 mg at bedtime He continues to receive group, individual, and activity therapies. Patient is seen an his treatment reviewed. He reports that he is doing better and does not currently have any thoughts or plan of hurting himself. However, he still describes his mood as "a little down". OBJECTIVE: He is observed socializing for the first time with his peers, as he watched a football game on the television. His mood is showing improvement, although some decrease in motivation and decreased energy level still present. Grooming and hygiene are fair. Thought process is current an goal-directed. No evidence of psychosis, and he denies suicidal/homicidal thought, plan, or intent. ASSESSMENT: Patient is showing positive response to medication, tolerating same and experiencing no notable side effects. PLAN: He will be continued on the current treatment, and will recheck lithium level. [facility]ITALKristal
[2016-04-18 06:18] VITALS: BP 96/54
[2016-04-18] MEDS: LITHIUM CARBONATE 300 MG **CR** TAB PO SCH ×2 (08:47→21:08)
[2016-04-18 18:41] VITALS: BP 100/54
--- NOTE | 2016-04-18 20:21 | IPN ---
DATE: 04/18/2016 Hospital admission day #6. TREATMENT: Current medications: - lithium carbonate 300 mg in the morning and 600 mg at bedtime - Paxil 40 mg at bedtime - prazosin 10 mg at bedtime - quetiapine 300 mg at bedtime The patient has been noted to be compliant with his treatment. He accepts medications and is beginning to be more active in group psychotherapeutic programs. He is noted to interact with his peers and presents with no significant problems. OBJECTIVE: His vital signs are stable. Blood pressure 96/54, pulse 64, respirations 16 and temperature 96.1. The patient's mood is noted to be notably less depressed. Affect is appropriate. He is calm, cooperative. No psychotic features are evident. He denies active thoughts, plan or intent of suicide, responding well to medication and has demonstrated notable improvement at this time. PLAN: He will be continued on the current treatment and will be reassessed in 24 hours. If stable, he will be discharged. His lithium level will be followed up. MOHINDER
[2016-04-18 21:08] VITALS: BP 126/80
[2016-04-18] MEDS: QUEtiapine FUMARATE 100 MG TAB PO SCH (21:08)
[2016-04-18] MEDS: PARoxetine 20 MG TAB PO SCH (21:08)
[2016-04-18] MEDS: QUEtiapine FUMARATE **XR** 200MG TABLET PO SCH (21:08)
[2016-04-18] MEDS: PRAZOSIN 1 MG CAP PO SCH (21:08)
[2016-04-19 06:03] VITALS: BP 84/46
[2016-04-19] MEDS: LITHIUM CARBONATE 300 MG **CR** TAB PO SCH (09:28)
[2016-04-19] MEDS ORDERED: MINI5CAP PO (11:02)
--- NOTE | 2016-04-19 17:44 | MHDS ---
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 He ran into the [place] as the police were on the way. The patient was found by police leaning against a tree with a belt around his neck. The said belt was removed by police and the patient was transported to the emergency department. While en route to the emergency room (ER), the patient's reportedly called to inform police that he had dumped a pile of his pills inside his mouth at the house but then spit them out, although it was not clear whether he swallowed any. The patient reported that he has, for the past 2 weeks, been experiencing worsening depressed mood, anger, feelings of hopelessness and helplessness, poor sleep, and marital problems. On the day of the said incident, he was involved in an argument with his . PAST PSYCHIATRIC HISTORY: The patient reported that he has been receiving mental health treatment since January 2016 for depression. He said that he previously had been diagnosed with posttraumatic stress disorder and major depression and has engaged in multiple attempts to hang himself. He has previously been treated with medications that include Seroquel, Paxil, and lithium. He is also followed at [facility] by Dr. Tolbert and Bryson Sánchez. He had a previous [facility] hospital admission from 01/14/2016 to 01/19/2016, for depression and suicidal ideation. He was discharged on olanzapine and trazodone at the time. His discharge diagnoses were dysthymic disorder and posttraumatic stress disorder. The admitting home medications include lithium carbonate 300 mg in the morning and 600 mg at bedtime, paroxetine 40 mg nightly, prazosin 10 mg nightly, and quetiapine 300 mg nightly. He denies substance abuse history. His medical history is notable for asthma and allergy to AMOXICILLIN. Please refer to admission history and physical for social and family histories. HOSPITAL COURSE: At the time of this admission mental status exam revealed normal speech. Thought process was coherent. No delusions were noted. He denied hallucination and was not observed responding to internal stimuli. His mood was depressed. He denied active suicidal thoughts, plan, or intent at the time, although admitted to occasional fleeting suicidal ideation. He was noted to be alert and adequately oriented. His insight and judgment were noted to be limited and impulse control inadequate. Admitting diagnoses was major depressive disorder, recurrent, to rule out bipolar disorder, and history of posttraumatic stress disorder. Identified problem list included depression and risk for suicide. For treatment, he was continued on his home medications and, in addition, was offered group, individual, and activity therapies. For a while he was noted not to participate in group activities and was mostly in his room either sleeping or sitting on his bed. He was, however, compliant with his medications and reported no side effects. Over time he began to show improvements, began to participate actively in therapeutic programs. He had no incidents on the unit throughout his admission period. He subsequently began to socialize, interacting normally with his peers. Upon being reevaluated, he was noted to have improved significantly and in the past 48 hours has maintained treatment stability. Hence, the decision to discharge him today. MENTAL STATUS ON DISCHARGE: Blood pressure is 84/46, pulse 62, respirations 18, and temperature 97.3. Patient noted to be appropriately groomed and dressed. Related in a conversational manner. Mood significantly improved. Affect appropriate. No psychotic features. Denied suicidal or homicidal thoughts, plan, or intent. Insight fair and judgment not impaired. DISCHARGE DIAGNOSIS: Major depressive disorder, recurrent. DISCHARGE MEDICATIONS: - paroxetine 40 mg nightly - lithium carbonate 300 mg every morning and 600 mg nightly - prazosin 10 mg nightly - quetiapine 300 mg nightly CONDITION ON DISCHARGE: Stable with no evidence of his being at imminent risk for suicide or homicide. Discharge plan discussed with the patient and he is in agreement. [facility] CENTERKristal
== END 2016-04-19 13:15 | disposition home or self-care (01) | DRG 885 ==
LOC: M ED 12:20 → M PSY 17:55
PROVIDERS: ADMIT Psychiatry & Neurology Psychiatry; ATTEND Psychiatry & Neurology Psychiatry
DX: F33.9 Major depressive disorder, recurrent, unspecified (principal); Z79.899 Other long term (current) drug therapy; Z88.1 Allergy status to other antibiotic agents; J45.909 Unspecified asthma, uncomplicated

== ENCOUNTER 2016-05-16 13:58 | Emergency (ER) | payer OTHER ==
[~2016-05-16 13:58] MED LIST changes: +LITH30TASA PO; +MINI5CAP PO; +PARO40TA PO; +PRAZ5CAP PO; +QUET1TAB8 PO; +QUET20XRTB PO
[2016-05-16] MEDS ORDERED: diphenhydrAMINE 25 MG CAP As Ordered ONE (14:44)
[2016-05-16] MEDS ORDERED: predniSONE 20 MG TAB As Ordered ONE (14:44)
--- NOTE | 2016-05-16 14:49 | EDDOCDS ---
Nurse's Notes [facility] Name: Alex Kay Age: 26 yrs Sex: Male : 1990 Arrival Date: 05/16/2016 Time: 13:58 Bed TR7 [facility] Diagnosis: Localized swelling, mass and lump of skin and subcutaneous tissue-upper lip Presentation: 05/16 14:03 Presenting complaint: Patient states: pt c/o allergic reaction since yesterday. unknown ead trigger. reports swelling and numbness to upper lip. Onset: The symptoms/episode began/occurred yesterday. The patient has a history of a previous allergic reaction. rash and vomiting to amoxicillin. Anaphylaxis evaluation, the patient reports or I have noted the following symptoms which indicate a significant risk of anaphylaxis: no signs or symptoms of anaphylaxis were noted. Adult Sepsis Screening: The patient does not have new or worsening altered mentation. Patient's respiratory rate is less than 22. Systolic blood pressure is greater than 100. Patient has a qSOFA score of 0- Negative Sepsis Screen. Suicide/Homicide risk assessment- the patient denies having any suicidal and/or homicidal ideations and does not present with any other emotional, behavioral or mental health complaints. 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 Transition of care: patient was not received from another setting of care. 14:03 Acuity: ALLISON Level 3 ead 14:03 Method Of Arrival: Walkin/Carried/Asstd ead Triage Assessment: 14:06 General: Appears in no apparent distress, comfortable, well nourished, well groomed, ead Behavior is appropriate for age, cooperative. Pain: Denies pain. HIV screening NA for this visit Offered previously. Neurological: No deficits noted. Respiratory: Airway is patent Respiratory effort is even, unlabored, Reports no respiratory complaints. Derm: Skin is pink, warm & dry. reports numbness and swelling to upper lip Swollen area noted on mouth. Historical: - Allergies: Amoxicillin; - Home Meds: 1. lithium carbonate 300 mg Oral cap twice a day 2. paroxetine HCl 40 mg Oral tab 1 tab once daily 3. prazosin 12 mg Oral cap 1 cap nightly 4. quetiapine 200 mg extended release and 100 mg immediate release oral tab at night 5. Synthroid 350 mcg Oral once daily - PMHx: Hypothyroidism; - PSHx: none; - Social history: Smoking status: Patient states was never smoker of tobacco. No barriers to communication noted, The patient speaks fluent Russian, Speaks appropriately for age. - Family history: Not pertinent. - : The pt / caregiver states he / she is not on anticoagulants. Home medication list is obtained from the patient, [employer] import data. - Exposure Risk Screening:: None identified. Screenin:35 Screening information is obtained from the patient. Fall risk: No risks identified. js13 Assistance ADL's: requires no assistance with activities of daily living. Abuse/DV Screen: The patient / caregiver reports he/she is: not in a situation that causes fear, pain or injury. Nutritional screening: No deficits noted. Advance Directives: There is no active DNR order. home support is adequate. Assessment: 14:47 General: Appears in no apparent distress, comfortable, Behavior is appropriate for age, js13 cooperative. Pain: Denies pain. Neurological: Level of Consciousness is awake, alert. Respiratory: Airway is patent Respiratory effort is even, unlabored, Respiratory pattern is regular, symmetrical, Breath sounds are clear. Derm: Skin is pink, warm & dry. Swollen area noted on mouth and head. Vital Signs: 14:02 BP 120 / 62; Pulse 82; Resp 18; Temp 96.5(T); Pulse Ox 96% on R/A; Weight 69.4 kg; dem1 Height 5 ft. 7 in. (170.18 cm) (R); Pain 0/10; 14:02 Body Mass Index 23.96 (69.40 kg, 170.18 cm) [facility] Vitals: 14:02 Log In Time: May 16, 2016 at 13:58. [facility] ED Course: 14:00 Patient visited by Ayesha Monzon. dem1 14:00 [facility]. dem1 14:00 Patient moved to Waiting dem1 14:02 Patient moved to Pre RCE dem1 14:04 Triage Initiated ead 14:22 Patient moved to Triage 1 ar3 14:25 Jaiden Collazo PA-C is PHCP. cc10 14:25 Kurt Porras MD is Attending Physician. cc10 14:35 The patient / caregiver is instructed regarding the plan of care and ED course. js13 14:35 No IV's were initiated during this patient's visit. No procedures done that require js13 assistance. 14:43 Patient visited by Jaiden Collazo PA-C. cc10 14:43 Patient visited by Jaiden Collazo PA-C. cc10 14:44 [facility], Jill Mena is Referral Physician. cc10 14:47 Patient moved to [place] [id number] Administered Medications: 14:45 Drug: predniSONE 40 mg [prednisone 20 mg tablet (2 tabs)] Route: PO; js13 14:45 Drug: diphenhydrAMINE 25 mg [diphenhydramine 25 mg capsule (1 caps)] Route: PO; js13 Order Results: There are currently no results for this order. Outcome: 14:44 Discharge ordered by Provider. cc10 14:47 Discharge Assessment: Patient awake, alert and oriented x 3. No cognitive and/or js13 functional deficits noted. Patient verbalized understanding of disposition instructions. patient administered narcotics - no. The following High Risk Discharge criteria are identified: None. Discharged to home ambulatory. Condition: stable. Discharge instructions given to patient, Instructed on discharge instructions, follow up and referral plans. medication usage, Demonstrated understanding of instructions, medications, Pt was receptive of discharge instructions/ teaching. Prescriptions given X 1. No special radiology studies were completed. Property :Personal belongings accompany Pt. 14:49 Patient left the ED. js13 Signatures: Tito Palacios, RN RN ml6 Adelina Frost, COMPUTER SECURITY MANAGER COMPUTER SECURITY MANAGER ar3 Nicolás, Ayesha dem1 Dominique Webster RN RN js13 Nani Galindo RN RN ead Coniski, Colin, PA-C PA-C [facility] MTDD
--- NOTE | 2016-05-16 14:49 | EDDOCDS ---
Physician Documentation [facility] Name: Alex Kay Age: 26 yrs Sex: Male : 1990 Arrival Date: 05/16/2016 Time: 13:58 Bed TR7 Private MD: [facility] [place] Disposition: 05/16/16 14:44 Discharged to Home/Self Care. Impression: Localized swelling, mass and lump of skin and subcutaneous tissue - upper lip. - Condition is Stable. - Discharge Instructions: Hives. - Prescriptions for Prednisone 20 mg Oral Tablet - take 1 tablet by ORAL route once daily for 3 days; 3 tablet. - Medication Reconciliation form. - Follow up: [facility]; When: Call to arrange an appointment; Reason: Wound/Symptom Recheck, Recheck today's complaints, Worsening of conditions, Continuance of care. - Problem is new. - Symptoms are unchanged. Historical: - Allergies: Amoxicillin; - Home Meds: 1. lithium carbonate 300 mg Oral cap twice a day 2. paroxetine HCl 40 mg Oral tab 1 tab once daily 3. prazosin 12 mg Oral cap 1 cap nightly 4. quetiapine 200 mg extended release and 100 mg immediate release oral tab at night 5. Synthroid 350 mcg Oral once daily - PMHx: Hypothyroidism; - PSHx: none; - Social history: Smoking status: Patient states was never smoker of tobacco. No barriers to communication noted, The patient speaks fluent Bahamian, Speaks appropriately for age. - Family history: Not pertinent. - : The pt / caregiver states he / she is not on anticoagulants. Home medication list is obtained from the patient, [employer] import data. - Exposure Risk Screening:: None identified. Vital Signs: 05/16 14:02 BP 120 / 62; Pulse 82; Resp 18; Temp 96.5(T); Pulse Ox 96% on R/A; Weight 69.4 kg / 153 dem1 lbs; Height 5 ft. 7 in. (170.18 cm) (R); Pain 0/10; 14:02 Body Mass Index 23.96 (69.40 kg, 170.18 cm) dem1 MDM: 14:43 predniSONE 40 mg PO once; administer with food or milk ordered. cc10 14:43 diphenhydrAMINE 25 mg PO once ordered. cc10 Administered Medications: 14:45 Drug: predniSONE 40 mg [prednisone 20 mg tablet (2 tabs)] Route: PO; js13 14:45 Drug: diphenhydrAMINE 25 mg [diphenhydramine 25 mg capsule (1 caps)] Route: PO; Signatures: Dominique WebsterRN RN js13 Nani Galindo RN RN Jaiden Brown PA-C PAKaycee cc10 MTDD
--- NOTE | 2016-05-18 15:49 | EDDOCDS ---
Physician Documentation [facility] Name: Alex Kay Age: 26 yrs Sex: Male : 1990 Arrival Date: 05/16/2016 Time: 13:58 Bed TR7 Private MD: [facility] [place] Disposition: 05/16/16 14:44 Discharged to Home/Self Care. Impression: Localized swelling, mass and lump of skin and subcutaneous tissue - upper lip. - Condition is Stable. - Discharge Instructions: Hives. - Prescriptions for Prednisone 20 mg Oral Tablet - take 1 tablet by ORAL route once daily for 3 days; 3 tablet. - Medication Reconciliation form. - Follow up: [facility]; When: Call to arrange an appointment; Reason: Wound/Symptom Recheck, Recheck today's complaints, Worsening of conditions, Continuance of care. - Problem is new. - Symptoms are unchanged. Historical: - Allergies: Amoxicillin; - Home Meds: 1. lithium carbonate 300 mg Oral cap twice a day 2. paroxetine HCl 40 mg Oral tab 1 tab once daily 3. prazosin 12 mg Oral cap 1 cap nightly 4. quetiapine 200 mg extended release and 100 mg immediate release oral tab at night 5. Synthroid 350 mcg Oral once daily - PMHx: Hypothyroidism; - PSHx: none; - Social history: Smoking status: Patient states was never smoker of tobacco. No barriers to communication noted, The patient speaks fluent Rwandan, Speaks appropriately for age. - Family history: Not pertinent. - : The pt / caregiver states he / she is not on anticoagulants. Home medication list is obtained from the patient, [facility] import data. - Exposure Risk Screening:: None identified. Vital Signs: 05/16 14:02 BP 120 / 62; Pulse 82; Resp 18; Temp 96.5(T); Pulse Ox 96% on R/A; Weight 69.4 kg / 153 dem1 lbs; Height 5 ft. 7 in. (170.18 cm) (R); Pain 0/10; 14:02 Body Mass Index 23.96 (69.40 kg, 170.18 cm) dem1 MDM: 14:43 predniSONE 40 mg PO once; administer with food or milk ordered. cc10 14:43 diphenhydrAMINE 25 mg PO once ordered. cc10 14:51 [facility] Payment Agreement was scanned into [employer] and attached to record. jp5 14:52 Financial registration complete. jp5 16:17 T-Sheet-- Draft Copy was scanned into [employer] and attached to record. klr Administered Medications: 14:45 Drug: predniSONE 40 mg [prednisone 20 mg tablet (2 tabs)] Route: PO; js13 14:45 Drug: diphenhydrAMINE 25 mg [diphenhydramine 25 mg capsule (1 caps)] Route: PO; js13 Signatures: Dominique WebsterRN RN js13 Nani Galindo,RN RN Jaiden Brown, PA-C PA-C cc10 Abril Luther jp5 Jennifer Valenzuela The chart was reviewed and I authenticate all verbal orders and agree with the evaluation and treatment provided.Attachments: 14:51 [facility] Payment Agreement jp5 16:17 T-Sheet-- Draft Copy klr Chart Complete MTDD
--- NOTE | 2016-05-18 15:49 | EDDOCDS ---
Physician Documentation [facility] Name: Alex Kay Age: 26 yrs Sex: Male : 1990 Arrival Date: 05/16/2016 Time: 13:58 Bed TR7 Private MD: [facility] [place] Disposition: 05/16/16 14:44 Discharged to Home/Self Care. Impression: Localized swelling, mass and lump of skin and subcutaneous tissue - upper lip. - Condition is Stable. - Discharge Instructions: Hives. - Prescriptions for Prednisone 20 mg Oral Tablet - take 1 tablet by ORAL route once daily for 3 days; 3 tablet. - Medication Reconciliation form. - Follow up: [facility]; When: Call to arrange an appointment; Reason: Wound/Symptom Recheck, Recheck today's complaints, Worsening of conditions, Continuance of care. - Problem is new. - Symptoms are unchanged. Historical: - Allergies: Amoxicillin; - Home Meds: 1. lithium carbonate 300 mg Oral cap twice a day 2. paroxetine HCl 40 mg Oral tab 1 tab once daily 3. prazosin 12 mg Oral cap 1 cap nightly 4. quetiapine 200 mg extended release and 100 mg immediate release oral tab at night 5. Synthroid 350 mcg Oral once daily - PMHx: Hypothyroidism; - PSHx: none; - Social history: Smoking status: Patient states was never smoker of tobacco. No barriers to communication noted, The patient speaks fluent Belarusian, Speaks appropriately for age. - Family history: Not pertinent. - : The pt / caregiver states he / she is not on anticoagulants. Home medication list is obtained from the patient, [employer] import data. - Exposure Risk Screening:: None identified. Vital Signs: 05/16 14:02 BP 120 / 62; Pulse 82; Resp 18; Temp 96.5(T); Pulse Ox 96% on R/A; Weight 69.4 kg / 153 dem1 lbs; Height 5 ft. 7 in. (170.18 cm) (R); Pain 0/10; 14:02 Body Mass Index 23.96 (69.40 kg, 170.18 cm) dem1 MDM: 14:43 predniSONE 40 mg PO once; administer with food or milk ordered. cc10 14:43 diphenhydrAMINE 25 mg PO once ordered. cc10 14:51 [facility] Payment Agreement was scanned into [employer] and attached to record. jp5 14:52 Financial registration complete. jp5 16:17 T-Sheet-- Draft Copy was scanned into [employer] and attached to record. klr Administered Medications: 14:45 Drug: predniSONE 40 mg [prednisone 20 mg tablet (2 tabs)] Route: PO; js13 14:45 Drug: diphenhydrAMINE 25 mg [diphenhydramine 25 mg capsule (1 caps)] Route: PO; js13 Signatures: Dominique WebsterRN RN js13 Nani Galindo,RN RN Jaiden Brown, PA-C PA-C cc10 Abril Luther jp5 Jennifer Valenzuela The chart was reviewed and I authenticate all verbal orders and agree with the evaluation and treatment provided.Attachments: 14:51 [facility] Payment Agreement jp5 16:17 T-Sheet-- Draft Copy klr Chart Complete MTDD
--- NOTE | 2016-05-18 15:49 | EDDOCDS ---
Nurse's Notes [facility] Name: Alex Kay Age: 26 yrs Sex: Male : 1990 Arrival Date: 05/16/2016 Time: 13:58 Bed TR7 [facility] Diagnosis: Localized swelling, mass and lump of skin and subcutaneous tissue-upper lip Presentation: 05/16 14:03 Presenting complaint: Patient states: pt c/o allergic reaction since yesterday. unknown ead trigger. reports swelling and numbness to upper lip. Onset: The symptoms/episode began/occurred yesterday. The patient has a history of a previous allergic reaction. rash and vomiting to amoxicillin. Anaphylaxis evaluation, the patient reports or I have noted the following symptoms which indicate a significant risk of anaphylaxis: no signs or symptoms of anaphylaxis were noted. Adult Sepsis Screening: The patient does not have new or worsening altered mentation. Patient's respiratory rate is less than 22. Systolic blood pressure is greater than 100. Patient has a qSOFA score of 0- Negative Sepsis Screen. Suicide/Homicide risk assessment- the patient denies having any suicidal and/or homicidal ideations and does not present with any other emotional, behavioral or mental health complaints. 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 Transition of care: patient was not received from another setting of care. 14:03 Acuity: ALLISON Level 3 ead 14:03 Method Of Arrival: Walkin/Carried/Asstd ead Triage Assessment: 14:06 General: Appears in no apparent distress, comfortable, well nourished, well groomed, ead Behavior is appropriate for age, cooperative. Pain: Denies pain. HIV screening NA for this visit Offered previously. Neurological: No deficits noted. Respiratory: Airway is patent Respiratory effort is even, unlabored, Reports no respiratory complaints. Derm: Skin is pink, warm & dry. reports numbness and swelling to upper lip Swollen area noted on mouth. Historical: - Allergies: Amoxicillin; - Home Meds: 1. lithium carbonate 300 mg Oral cap twice a day 2. paroxetine HCl 40 mg Oral tab 1 tab once daily 3. prazosin 12 mg Oral cap 1 cap nightly 4. quetiapine 200 mg extended release and 100 mg immediate release oral tab at night 5. Synthroid 350 mcg Oral once daily - PMHx: Hypothyroidism; - PSHx: none; - Social history: Smoking status: Patient states was never smoker of tobacco. No barriers to communication noted, The patient speaks fluent Guamanian, Speaks appropriately for age. - Family history: Not pertinent. - : The pt / caregiver states he / she is not on anticoagulants. Home medication list is obtained from the patient, [employer] import data. - Exposure Risk Screening:: None identified. Screenin:35 Screening information is obtained from the patient. Fall risk: No risks identified. js13 Assistance ADL's: requires no assistance with activities of daily living. Abuse/DV Screen: The patient / caregiver reports he/she is: not in a situation that causes fear, pain or injury. Nutritional screening: No deficits noted. Advance Directives: There is no active DNR order. home support is adequate. Assessment: 14:47 General: Appears in no apparent distress, comfortable, Behavior is appropriate for age, js13 cooperative. Pain: Denies pain. Neurological: Level of Consciousness is awake, alert. Respiratory: Airway is patent Respiratory effort is even, unlabored, Respiratory pattern is regular, symmetrical, Breath sounds are clear. Derm: Skin is pink, warm & dry. Swollen area noted on mouth and head. Vital Signs: 14:02 BP 120 / 62; Pulse 82; Resp 18; Temp 96.5(T); Pulse Ox 96% on R/A; Weight 69.4 kg; dem1 Height 5 ft. 7 in. (170.18 cm) (R); Pain 0/10; 14:02 Body Mass Index 23.96 (69.40 kg, 170.18 cm) [facility] Vitals: 14:02 Log In Time: May 16, 2016 at 13:58. [facility] ED Course: 14:00 Patient visited by Ayesha Monzon. dem1 14:00 [facility] dem1 14:00 Patient moved to Waiting dem1 14:02 Patient moved to Pre RCE dem1 14:04 Triage Initiated ead 14:22 Patient moved to Triage 1 ar3 14:25 Jaiden Collazo PA-C is PHCP. cc10 14:25 Kurt Porras MD is Attending Physician. cc10 14:35 The patient / caregiver is instructed regarding the plan of care and ED course. js13 14:35 No IV's were initiated during this patient's visit. No procedures done that require js13 assistance. 14:43 Patient visited by Jaiden Collazo PA-C. cc10 14:43 Patient visited by Jaiden Collazo PA-C. cc10 14:44 [facility], Jill Mena is Referral Physician. cc10 14:47 Patient moved to [place] [id number] 14:51 [facility] Payment Agreement was scanned into [employer] and attached to record. jp5 16:17 T-Sheet-- Draft Copy was scanned into [employer] and attached to record. klr Administered Medications: 14:45 Drug: predniSONE 40 mg [prednisone 20 mg tablet (2 tabs)] Route: PO; js13 14:45 Drug: diphenhydrAMINE 25 mg [diphenhydramine 25 mg capsule (1 caps)] Route: PO; js13 Order Results: There are currently no results for this order. Outcome: 14:44 Discharge ordered by Provider. cc10 14:47 Discharge Assessment: Patient awake, alert and oriented x 3. No cognitive and/or js13 functional deficits noted. Patient verbalized understanding of disposition instructions. patient administered narcotics - no. The following High Risk Discharge criteria are identified: None. Discharged to home ambulatory. Condition: stable. Discharge instructions given to patient, Instructed on discharge instructions, follow up and referral plans. medication usage, Demonstrated understanding of instructions, medications, Pt was receptive of discharge instructions/ teaching. Prescriptions given X 1. No special radiology studies were completed. Property :Personal belongings accompany Pt. 14:49 Patient left the ED. js13 Signatures: Tito Palacios, RN RN ml6 Adelina Frost, PARIMUTUEL CASHIER PARIMUTUEL CASHIER ar3 Ayesha Monzon dem1 Dominique Webster RN RN js13 Nani GalindoRN Jaiden Barba PA-C PA-C cc10 Abril Luther 5 Jennifer Valenzuela r Chart Complete MTDD
== END 2016-05-16 14:49 | disposition home or self-care (01) ==
LOC: M ED 13:58
DX: L50.0 Allergic urticaria (principal); E03.9 Hypothyroidism, unspecified; Z79.899 Other long term (current) drug therapy; Z88.0 Allergy status to penicillin

== ENCOUNTER 2016-07-15 10:59 | Emergency (ER) | payer OTHER ==
[~2016-07-15] VITALS: Ht 170.2 cm; Wt 70.8 kg
[~2016-07-15 10:59] MED LIST changes: -PARO40TA PO; +PARO40TA2 PO
[2016-07-15 11:14] VITALS: BP 133/75
[2016-07-15] MEDS ORDERED: ABIL1TAB5 PO (11:20)
[2016-07-15] MEDS ORDERED: LIDOCAINE 2% W/EPIN INJ 20ML **PRES FREE INJ ONE (13:00)
[2016-07-15] MEDS ORDERED: ADACEL/BOOSTRIX VACCINE (DIPHTH/PERTUSS/ACELL/TETANUS)0.5ML SYR (90715) IM ONE (13:00)
[2016-07-15] MEDS ORDERED: CEPHALEXIN 500 MG CAP PO ONE (13:00)
[2016-07-15] MEDS ORDERED: KEFL500C7 PO (14:12)
== END 2016-07-15 14:25 | disposition home or self-care (01) ==
LOC: M ED 12:43
DX: S41.111A Laceration without foreign body of right upper arm, initial encounter (principal); X99.9XXA Assault by unspecified sharp object, initial encounter; Y92.410 Unspecified street and highway as the place of occurrence of the external cause; Y93.89 Activity, other specified; Y99.0 Civilian activity done for income or pay; F41.9 Anxiety disorder, unspecified; Z79.899 Other long term (current) drug therapy; Z88.0 Allergy status to penicillin